=== PATIENT | male | born 1955 | race Caucasian/White ===

== ENCOUNTER 2020-12-30 13:41 | Outpatient (RCR) | payer OTHER, SELFPAY ==
[2020-12-30] MEDS: COVID-19 VACC, MRNA(PFIZER)/PF 30 MCG/0.3 ML SYRINGE IM (09:16)
[2021-01-20] MEDS: COVID-19 VACC, MRNA(PFIZER)/PF 30 MCG/0.3 ML SYRINGE IM (08:54)
== END 2020-12-30 23:59 ==
LOC: IMMUN 13:41
PROVIDERS: PCP Nurse Practitioner Primary Care; Visit Provider Family Medicine
DX: Z23 Encounter for immunization (principal)
CPT/HCPCS: 0001A; 0002A; 91300